=== PATIENT | female | born 1965 | race Caucasian/White ===

== ENCOUNTER 2016-12-27 19:43 | Emergency (ER) | payer OTHER ==
[~2016-12-27] VITALS: Ht 160 cm; Wt 71.2 kg
[~2016-12-27 19:43] MED LIST: IBUPROFEN800 MG PO; LACRILUBE OD; MULTIVITAMIN1 TAB PO; NATURAL IRON65 MG PO; PERCOCET 325 MG1 TA2 PO; PREDNISONE 20MG20 MG PO; ZOVIRAX800 MG PO
--- NOTE | 2016-12-27 21:17 | ED HEAD/FACIAL INJ COMPLAINT ---
History of Present Illness General Chief Complaint: General Adult Stated Complaint: PT HIT BY BARN DOOR ON THE HEAD Source: patient, family Exam Limitations: no limitations Vital Signs & Intake/Output Vital Signs & Intake/Output Vital Signs Date Time Temp Pulse Resp B/P B/P Pulse O2 O2 Flow FiO2 Mean Ox Delivery Rate 12/27 1954 97.3 80 18 121/80 98 Room Air Allergies Coded Allergies: NO KNOWN ALLERGIES (11/29/13) Reconcile Medications No Known Home Medications Triage Note: PT TO TRIAGE FOR C/O HEADACHE 04/22, NAUSEA, NO APPETITE S/P HIT BY BARN DOOR ON SUNDAY, +LOC. PT HAD BLURRY VISION AND PHOTOSENSITIVITY FOR 2DAYS AFTER INJURY. VSS. Triage Nurses Notes Reviewed? yes HPI: Last week patient was hit in head by a formed work that had fallen. There was loss of consciousness. Patient is unsure how long. Patient has had a persistent headache and nausea since then. Patient has also had neck pain. The headache is throbbing in nature and is constant. The pain decreases when she takes Aleve but then begins to come back. There is no radiation. At its worst the pain is 7 out of 10 and after she takes Aleve it goes down to a 3 out of 10. There is no blurry vision. There is nausea and anorexia but there is no vomiting. There are no fevers or chills. Patient also has a neck pain which is achy in nature. Pain increased with movement. There is no radiation. The pain is constant. She rates that pain as a 4 out of 10. There is no weakness or numbness. Past History Travel History Traveled to [place] past 21 day No Medical History Any Pertinent Medical History? 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 No Review of Systems Review of Systems Constitutional: Reports: no symptoms. EENTM: Reports: no symptoms. Respiratory: Reports: no symptoms. Cardiovascular: Reports: no symptoms. GI: Reports: see HPI, nausea. Genitourinary: Reports: no symptoms. Musculoskeletal: Reports: see HPI, neck pain. Skin: Reports: no symptoms. Neurological/Psychological: Reports: see HPI, headache. Hematologic/Endocrine: Reports: no symptoms. Immunologic/Allergic: Reports: no symptoms. All Other Systems: Reviewed and Negative Physical Exam Physical Exam General Appearance: well developed/nourished, alert, awake, mild distress Head: atraumatic, normal appearance Eyes: Bilateral: PERRL, EOMI. Ears, Nose, Throat: normal pharynx, normal ENT inspection, hearing grossly normal Neck: normal inspection, supple, tender lateral, tender midline Respiratory: normal breath sounds, chest non-tender, no respiratory distress, lungs clear Cardiovascular: regular rate/rhythm, normal peripheral pulses Gastrointestinal: soft, non-tender Back: normal inspection Extremities: normal inspection, normal range of motion, no edema Psychiatric: awake, alert, oriented x 3 Cranial Nerves: normal hearing, normal speech, PERRL Coordination/Gait: normal gait Motor/Sensory: no motor/sensory deficits Skin: intact, normal color, warm/dry Lymphatic: no anterior cervical chanda Progress Differential Diagnosis: c-spine injury, ICH, skull fracture Plan of Care: Orders Procedure Date/time Status CT HEAD WO IV CONTRAST 12/[address] CERV SPINE WO IV CONTRAST 12/28 2115 Active Diagnostic Imaging: Viewed by Me: CT Scan. Discussed w/RAD: CT Scan. Radiology Impression: PATIENT: VASU SCHNEIDER PRESENT AGE: 51 PATIENT ACCOUNT NO: [id number] : 66 LOCATION: [facility] ORDERING PHYSICIAN: DEYSI MENDES MD SERVICE DATE: 12/27/16 EXAM TYPE: CAT - CT HEAD WO IV CONTRAST EXAMINATION: CT HEAD WITHOUT CONTRAST CLINICAL INFORMATION: Head injury with loss of consciousness last week. Persistent headache. COMPARISON: CT head October 2015 TECHNIQUE: Contiguous axial imaging was performed from the skull base to vertex without intravenous administration of contrast. DLP: 590 mGy-cm FINDINGS: There is no evidence of acute intracranial hemorrhage or territorial infarction. No abnormal mass effect or midline shift is seen. Oconnor to white matter differentiation is well preserved. No extra-axial fluid collections are identified. The ventricles are normal in size. There is no abnormal attenuation within the brain parenchyma. The osseous structures and soft tissues are normal. The mastoid air cells and visualized portions of the paranasal sinuses are well aerated. IMPRESSION: No acute intracranial pathology. DICTATED BY: YANIV WELLS MD DATE/TIME DICTATED:12/27/162142 PRODUCTION SAMPLER:SOPHY DATE/TIME TRANSCRIBED:2142 CONFIDENTIAL, DO NOT COPY WITHOUT APPROPRIATE AUTHORIZATION. < Electronically signed in Other Vendor System> SIGNED BY: YANIV WELLS MD 12/27/162150, PATIENT: VASU SCHNEIDER PRESENT AGE: 51 PATIENT ACCOUNT NO: [id number] : 66 LOCATION: [facility] ORDERING PHYSICIAN: DEYSI MENDES MD SERVICE DATE: 12/27/16 EXAM TYPE: CAT - CT CERV SPINE WO IV CONTRAST EXAMINATION: CT CERVICAL SPINE WITHOUT CONTRAST CLINICAL INFORMATION: Persistent neck pain from head injury last week. COMPARISON: None TECHNIQUE: CT scan of cervical spine was performed with additional sagittal coronal reformatted images obtained at the acquisition workstation DLP: 283 mGy-cm FINDINGS: There is reversal of the usual cervical lordosis which may be due to patient positioning and perhaps in part related to spondylosis. At C5-C6 and C6-C7 there is [id number] degenerative disc changes with disc space narrowing and endplate osteophyte formation. At C4-C5 there is mild anterolisthesis of C4 and C5, which appears to be related to severe left facet arthrosis. C3-C4 there is mild anterolisthesis of C3 and C4, which appears to be related to severe right facet arthrosis. There is severe facet arthrosis on the left at C2-C3. I do not see a fracture. IMPRESSION: The surrounding soft tissues are normal. No acute abnormality. Multilevel spondylosis of the cervical spine DICTATED BY: YANIV WELLS MD DATE/TIME DICTATED:12/27/162147 PRODUCTION SAMPLER:SOPHY DATE/TIME TRANSCRIBED:2147 CONFIDENTIAL, DO NOT COPY WITHOUT APPROPRIATE AUTHORIZATION. < Electronically signed in Other Vendor System> SIGNED BY: YANIV WELLS MD 12/27/162226 Departure Departure Disposition: HOME OR SELF CARE Condition: Stable Clinical Impression Primary Impression: Concussion Referrals: PATIENT HAS NO PRIMARY CARE DR (PCP/Family) Additional Instructions: RETURN IF SYMPTOMS WORSEN OR FOR ANY CONCERNS Departure Forms: Customer Survey General Discharge Information Prescriptions: Current Visit Scripts Ondansetron (Zofran Odt) 1 TAB SL TID PRN NAUSEA #10 TAB
--- NOTE | 2016-12-27 21:51 | CT SCAN REPORT ---
EXAMINATION: CT HEAD WITHOUT CONTRAST CLINICAL INFORMATION: Head injury with loss of consciousness last week. Persistent headache. COMPARISON: CT head October 2015 TECHNIQUE: Contiguous axial imaging was performed from the skull base to vertex without intravenous administration of contrast. DLP: 590 mGy-cm FINDINGS: There is no evidence of acute intracranial hemorrhage or territorial infarction. No abnormal mass effect or midline shift is seen. Oconnor to white matter differentiation is well preserved. No extra-axial fluid collections are identified. The ventricles are normal in size. There is no abnormal attenuation within the brain parenchyma. The osseous structures and soft tissues are normal. The mastoid air cells and visualized portions of the paranasal sinuses are well aerated. IMPRESSION: No acute intracranial pathology.
--- NOTE | 2016-12-27 22:27 | CT SCAN REPORT ---
EXAMINATION: CT CERVICAL SPINE WITHOUT CONTRAST CLINICAL INFORMATION: Persistent neck pain from head injury last week. COMPARISON: None TECHNIQUE: CT scan of cervical spine was performed with additional sagittal coronal reformatted images obtained at the acquisition workstation DLP: 283 mGy-cm FINDINGS: There is reversal of the usual cervical lordosis which may be due to patient positioning and perhaps in part related to spondylosis. At C5-C6 and C6-C7 there is muhmewgb-aw-nzknaw degenerative disc changes with disc space narrowing and endplate osteophyte formation. At C4-C5 there is mild anterolisthesis of C4 and C5, which appears to be related to severe left facet arthrosis. C3-C4 there is mild anterolisthesis of C3 and C4, which appears to be related to severe right facet arthrosis. There is severe facet arthrosis on the left at C2-C3. I do not see a fracture. IMPRESSION: The surrounding soft tissues are normal. No acute abnormality. Multilevel spondylosis of the cervical spine
[2016-12-27] MEDS ORDERED: ZOFRAN ODT4 M1 SL (22:39)
[2016-12-27 22:54] VITALS: BP 128/78
== END 2016-12-27 23:01 ==
LOC: ERH 19:43
DX: S06.0X9A Concussion with loss of consciousness of unspecified duration, initial encounter (principal); W22.8XXA Striking against or struck by other objects, initial encounter; Y92.9 Unspecified place or not applicable; Y93.9 Activity, unspecified
CPT/HCPCS: J3101

== ENCOUNTER 2017-01-23 09:32 | Emergency (ER) | payer OTHER ==
[~2017-01-23] VITALS: Ht 160 cm; Wt 64.4 kg
[~2017-01-23 09:32] MED LIST changes: +ZOFRAN ODT4 M1 SL
[2017-01-23 09:39] VITALS: BP 119/73
--- NOTE | 2017-01-23 10:08 | ED ANIMAL BITE/WOUND CHECK ---
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 PT NOTED WITH SLIGHT L SIDE FACIAL DROOP, AND FEELS LIKE HER SPEECH IS OFF. HAD LEFT OVER ACYCLOVIR AND TOOK 2 YESTERDAY.BILATERAL HAND GRASP STRONG AND EQUAL Triage Nurses Notes Reviewed? yes Onset: Abrupt Duration: hour(s):, constant Timing: recent history No Modifying Factors: none HPI: 51-year-old female comes into emergency room with take that she removed behind her left ear. Patient does not think he was on their greater than 72 hours. Patient reports that the tick was not her own and she was able to easily remove it. She never pain and some neck soreness. 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 (ELSY PIRES) Past History Travel History Traveled to [place] past 21 day No Medical History Any Pertinent Medical History? 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 No (ELSY PIRES) Review of Systems Review of Systems Constitutional: Reports: no symptoms. EENTM: Reports: no symptoms. Respiratory: Reports: no symptoms. Cardiovascular: Reports: no symptoms. GI: Reports: no symptoms. Genitourinary: Reports: no symptoms. Musculoskeletal: Reports: no symptoms. Skin: Reports: see HPI. Neurological/Psychological: Reports: no symptoms. Hematologic/Endocrine: Reports: no symptoms. Immunologic/Allergic: Reports: no symptoms. All Other Systems: Reviewed and Negative (ELSY PIRES) Physical Exam Physical Exam General Appearance: well developed/nourished, mild distress Head: atraumatic Eyes: Bilateral: normal appearance. 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 In no apparent distress. Nontoxic appearing. Patient given a one-time dose of doxycycline here. Recommended to follow-up for Lyme titer and a couple weeks. Clinically looks well. No evidence of Lyme disease. Patient was concerned she may get Mcbride's palsy. There is no evidence of Mcbride's palsy and exam. Cranial nerve function is intact on face. (ELSY PIRES) Departure Departure Disposition: HOME OR SELF CARE Condition: Stable Clinical Impression Primary Impression: Tick bite Referrals: PATIENT HAS NO PRIMARY CARE DR (PCP/Family) Additional Instructions: Follow-up with your primary care doctor for Lyme titer in 2 weeks. Return if any concerns worsening symptoms. If you get a bull's-eye rash she should be treated for full course of Lyme disease with 3 weeks of antibiotics. Please go over all results of today's visit with your primary care doctor. Contact your primary care doctor to let them know you were here in the emergency room. There may be nonspecific findings which may not be related to your visit today here in the emergency room but may require further evaluation and chronic monitoring by your primary care doctor. If you had a laceration today the chance of foreign body always remains. You should follow-up with your primary care doctor for recheck in 3-5 days for a wound check. If you had an x-ray done there is a chance that a fracture could have been missed on initial read and you should follow-up with your primary care doctor for repeat x-rays if symptoms persist. If your blood pressure was elevated here in the emergency room please have rechecked by her primary care doctor within the next 48 hours by your primary care doctor. If you were prescribed a narcotic here in the emergency room or any type of controlled substances you're not allowed to drive while taking this medication or operate any type of heavy machinery. Narcotics can make you feel lightheaded dizziness nausea and can cause constipation. You may need to pick remover a stool softener. Thank you for choosing [facility] emergency room. Please return to the emergency room immediately if you have any other concerns worsening of symptoms. Departure Forms: Customer Survey General Discharge Information (ELSY PIRES) PA/CASUALTY INSURANCE CLAIM ADJUSTER Co-Sign Statement Statement: ED Attending supervision documentation- [] I saw and evaluated the patient. I have also reviewed all the pertinent lab results and diagnostic results. I agree with the findings and the plan of care as documented in the PA's/CASUALTY INSURANCE CLAIM ADJUSTER's documentation. [X] I have reviewed the ED Record and agree with the PA's/CASUALTY INSURANCE CLAIM ADJUSTER's documentation. [] Additions or exceptions (if any) to the PAs/CASUALTY INSURANCE CLAIM ADJUSTER's note and plan are summarized below: [] (GAEL FUNEZ,SLIME)
== END 2017-01-23 10:13 ==
LOC: ERH 09:32
DX: S00.06XA Insect bite (nonvenomous) of scalp, initial encounter (principal); W57.XXXA Bitten or stung by nonvenomous insect and other nonvenomous arthropods, initial encounter; Y93.H2 Activity, gardening and landscaping; Y92.9 Unspecified place or not applicable